=== PATIENT | male | born 2000 | race Caucasian/White ===

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

== ENCOUNTER 2019-09-30 15:51 | Emergency (ER) | payer MEDICAID ==
[~2019-09-30] VITALS: Ht 172.7 cm; Wt 87.9 kg
--- NOTE | 2019-09-30 18:04 | NUR ---
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
[2019-09-30] MEDS ORDERED: KETOROLAC 30 MG/1 ML ONE (18:23)
[2019-09-30] MEDS ORDERED: ACETAMINOPHEN 500 MG TABLET ONE (18:23)
[2019-09-30] MEDS ORDERED: ACETAMINOPHEN 500 MG TABLET PO ONE (18:30)
[2019-09-30] MEDS ORDERED: KETOROLAC 30 MG/1 ML IM ONE (18:30)
[2019-09-30 18:37] VITALS: BP 121/77
== END 2019-09-30 18:40 | disposition home or self-care (01) ==
LOC: MERGE 15:51 → ED 18:30
DX: R07.89 Other chest pain (principal)
CPT/HCPCS: 71045; 93005; 96372; 99283; J1885

== ENCOUNTER 2020-06-28 18:56 | Emergency (ER) | payer MEDICAID ==
[~2020-06-28] VITALS: Ht 172.7 cm; Wt 89.9 kg
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
[2020-06-28] MEDS ORDERED: KETOROLAC 30 MG/1 ML IM ONE (20:00)
[2020-06-28 20:17] LABS: BASOPHILS # (AUTO) 0.16 x10^3/uL (0-0.1); BASOPHILS % (AUTO) 2 % (0-1); EOSINOPHILS # (AUTO) 0.27 x10^3/uL (0-0.4); EOSINOPHILS % (AUTO) 3 % (1-7); LYMPHOCYTES # (AUTO) 2.87 x10^3/uL (1-3.4); LYMPHOCYTES % (AUTO) 36 % (22-44); MD NO; MEAN CORPUSCULAR HEMOGLOBIN 29.2 pg (27.5-34.5); MEAN CORPUSCULAR HGB CONC 33.6 g/dL (33.2-36.2); MEAN PLATELET VOLUME 8.7 fL (7.4-10.4); MONOCYTES # (AUTO) 0.49 x10^3/uL (0.2-0.8); MONOCYTES % (AUTO) 6 % (2-9); NEUTROPHILS # (AUTO) 4.26 x10^3/uL (1.8-6.8); NEUTROPHILS % (AUTO) 53 % (42-75); PLATELET COUNT 219 x10^3/uL (130-400); RED BLOOD COUNT 5.49 x10^6/uL (4.38-5.82); RED CELL DISTRIBUTION WIDTH 13.5 % (9.4-14.8)
[2020-06-28] MEDS ORDERED: KETOROLAC 30 MG/1 ML ONE (20:19)
[2020-06-28 20:29] LABS: ANION GAP 6 mmol/L (5-15); CALCIUM 9.3 mg/dL (8.5-10.1); CHLORIDE 106 mmol/L (98-107); CREATININE 1.04 mg/dL (0.7-1.3)
[2020-06-28 20:34] VITALS: BP 124/85
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
== END 2020-06-28 21:29 | disposition home or self-care (01) ==
LOC: ED 21:24
DX: M94.0 Chondrocostal junction syndrome [Tietze] (principal); R07.89 Other chest pain
CPT/HCPCS: 36415; 71046; 80048; 85025; 93005; 96372; 99285; J1885

== ENCOUNTER 2021-05-06 14:30 | Emergency (ER) | payer SELFPAY ==
[~2021-05-06] VITALS: Ht 175.3 cm; Wt 93.9 kg
[2021-05-06 14:32] VITALS: BP 125/81
== END 2021-05-06 15:08 | disposition home or self-care (01) ==
LOC: ED 15:00
DX: L04.2 Acute lymphadenitis of upper limb (principal)
CPT/HCPCS: 99283